=== PATIENT | female | born 1985 | race Caucasian/White ===

== ENCOUNTER 2019-07-29 03:10 | Inpatient (IN) ==
[2019-07-29 03:30] VITALS: BMI 26.4
[2019-07-29] MEDS ORDERED: D5 1/2 NS 1000 ML 1,000 ML IV ONE (03:40)
[2019-07-29] MEDS ORDERED: D5 1/2 NS 1000 ML 1,000 ML IV SCH (04:00)
[2019-07-29] MEDS ORDERED: D5LR 1L W PITOCIN 10 UNITS/L 10 UNITS/1,000 ML BAG IV ONE (04:59)
[2019-07-29] MEDS ORDERED: NUBAIN INJ 200 MG VIAL MULTIDOSE IVP PRN ×2 (05:08→08:00)
[2019-07-29] MEDS ORDERED: PHENERGAN INJ 25 MG IM PRN ×2 (05:08→20:20)
[2019-07-29] MEDS ORDERED: REGLAN INJ 10 MG VIAL IVP PRN (05:08)
[2019-07-29] MEDS ORDERED: MORPHINE SULFATE INJ 2 MG INJ IVP PRN (05:08)
[2019-07-29] MEDS ORDERED: D5LR 1L W PITOCIN 10 UNITS/L 10 UNITS/1,000 ML BAG IV PRN (05:08)
[2019-07-29] MEDS ORDERED: PITOCIN IVP ONE (05:08)
[2019-07-29] MEDS ORDERED: D5 1/2 NS 1L W PITOCIN 20 UNITS/L 20 UNITS/1,000 ML BAG IV ONE ×3 (06:13→22:26)
[2019-07-29] MEDS ORDERED: PITOCIN ONE (06:13)
[2019-07-29] MEDS ORDERED: LR 1000 ML IV 1,000 ML IV ONE ×2 (07:32→16:48)
[2019-07-29] MEDS ORDERED: FENTANYL INJ 100 mcg ONE (07:33)
[2019-07-29] MEDS ORDERED: NAROPIN EPIDURAL 0.2% + FENTANYL 90MCG 60 ML EPI ONE ×2 (07:33→15:33)
[2019-07-29] MEDS ORDERED: XYLOCAINE 2 % (PLAIN) ONE (17:42)
[2019-07-29] MEDS ORDERED: HEMABATE IM ONE ×3 (18:13→23:01)
[2019-07-29] MEDS ORDERED: CYTOTEC ONE (18:28)
[2019-07-29] MEDS ORDERED: AMBIEN PO PRN (19:49)
[2019-07-29] MEDS ORDERED: DERMOPLAST SPRAY TOP PRN (19:49)
[2019-07-29] MEDS ORDERED: MOTRIN TAB 800 MG PO PRN (19:49)
[2019-07-29] MEDS ORDERED: MILK OF MAGNESIA PO PRN (19:49)
[2019-07-29] MEDS: D5 1/2 NS 1000 ML 1,000 ML with PITOCIN 20 UNITS IV SCH ×2 (19:57)
[2019-07-29] MEDS ORDERED: ZOFRAN INJ 4 MG VIAL IVP PRN (20:20)
[2019-07-29] MEDS: TORADOL 30 MG VIAL IVP SCH (20:35)
[2019-07-29] MEDS ORDERED: METHERGINE IM ONE (22:09)
[2019-07-29] MEDS ORDERED: NS 1000 ML 1,000 ML ONE (22:13)
[2019-07-29] MEDS ORDERED: METHERGINE ONE (22:14)
[2019-07-29 22:29] LABS: HEMOGLOBIN 6.4 g/dL (12.0-16.0)
[2019-07-29 22:30] LABS: HEMATOCRIT 19.4 % (36.0-47.0)
[2019-07-29] MEDS ORDERED: NS 1000 ML 1,000 ML IV ONE (22:32)
[2019-07-29] MEDS ORDERED: NS 100 ML IV 100 ML IV ONE (22:46)
[2019-07-29] MEDS ORDERED: MEFOXIN IV ONE (22:47)
[2019-07-29] MEDS ORDERED: NS 500 ML IV 500 ML IV ONE (22:57)
[2019-07-29] MEDS: SPIKE MINIBAG IV SCH (22:58)
[2019-07-29] MEDS: MEFOXIN IV SCH (22:58)
[2019-07-29] MEDS: NS IV SCH (22:58)
[2019-07-29] MEDS ORDERED: MEFOXIN 1 G in NS 100 ML IV + SPIKE MINIBAG* 100 ML IV SCH (23:00)
[2019-07-29] MEDS ORDERED: METHERGINE IM PRN (23:29)
[2019-07-30] MEDS: COLACE CAP 100 MG PO SCH ×2 (01:17→21:45)
[2019-07-30] MEDS: MIRALAX POWDER (1 DOSE 17 G) PO SCH ×2 (01:17→21:46)
[2019-07-30] MEDS: D5 1/2 NS 1000 ML 1,000 ML with PITOCIN 20 UNITS IV SCH ×4 (01:19→13:22)
[2019-07-30] MEDS ORDERED: NS 500 ML IV 500 ML IV ONE (03:28)
[2019-07-30] MEDS ORDERED: NS 100 ML IV 100 ML IV ONE ×2 (03:29→19:29)
[2019-07-30] MEDS: TORADOL 30 MG VIAL IVP SCH ×3 (04:21→13:49)
[2019-07-30] MEDS: NORCO 5/325 MG TAB PO PRN ×2 (04:32→21:46)
[2019-07-30] MEDS: NS 500 ML IV 500 ML IV PRN (05:13)
[2019-07-30] MEDS: NS IV SCH ×3 (05:14→21:46)
[2019-07-30] MEDS: MEFOXIN IV SCH ×3 (05:14→21:46)
[2019-07-30] MEDS: SPIKE MINIBAG IV SCH ×3 (05:14→21:46)
[2019-07-30 06:46] LABS: HEMATOCRIT 23.5 % (36.0-47.0); HEMOGLOBIN 8.1 g/dL (12.0-16.0)
[2019-07-30] MEDS: PRENATAL PLUS PO SCH (09:28)
[2019-07-30] MEDS ORDERED: D5 1/2 NS 1000 ML 1,000 ML IV ONE (09:50)
[2019-07-30 12:37] LABS: HEMATOCRIT 21.3 % (36.0-47.0); HEMOGLOBIN 7.5 g/dL (12.0-16.0)
[2019-07-30] MEDS: D5 1/2 NS 1000 ML 1,000 ML IV SCH ×2 (13:50→17:33)
[2019-07-30] MEDS: BETADINE SOLN TOP SCH ×2 (13:50→21:47)
[2019-07-31] MEDS: NORCO 5/325 MG TAB PO PRN ×2 (01:29→22:17)
[2019-07-31] MEDS: D5 1/2 NS 1000 ML 1,000 ML IV SCH ×3 (02:36→20:23)
[2019-07-31] MEDS ORDERED: NS 100 ML IV 100 ML IV ONE (04:06)
[2019-07-31] MEDS: BETADINE SOLN TOP SCH ×3 (05:21→22:16)
[2019-07-31] MEDS: SPIKE MINIBAG IV SCH ×3 (05:22→22:16)
[2019-07-31] MEDS: MEFOXIN IV SCH ×3 (05:22→22:16)
[2019-07-31] MEDS: NS IV SCH ×3 (05:22→22:16)
[2019-07-31 05:54] LABS: HEMATOCRIT 18.6 % (36.0-47.0); HEMOGLOBIN 6.5 g/dL (12.0-16.0)
[2019-07-31] MEDS: NS 500 ML IV 500 ML IV PRN (06:22)
[2019-07-31] MEDS: PRENATAL PLUS PO SCH (09:42)
[2019-07-31] MEDS: METHERGINE PO SCH ×3 (13:56→22:16)
[2019-07-31 20:55] LABS: HEMATOCRIT 28.2 % (36.0-47.0)
[2019-07-31 20:57] LABS: HEMOGLOBIN 9.7 g/dL (12.0-16.0)
[2019-07-31] MEDS: MIRALAX POWDER (1 DOSE 17 G) PO SCH (22:16)
[2019-07-31] MEDS: COLACE CAP 100 MG PO SCH (22:16)
[2019-08-01] MEDS: D5 1/2 NS 1000 ML 1,000 ML IV SCH ×3 (01:08→14:26)
[2019-08-01] MEDS: BETADINE SOLN TOP SCH ×2 (05:09→14:25)
[2019-08-01] MEDS: MEFOXIN IV SCH ×2 (05:09→14:26)
[2019-08-01] MEDS: NS IV SCH ×2 (05:09→14:26)
[2019-08-01] MEDS: SPIKE MINIBAG IV SCH ×2 (05:09→14:26)
[2019-08-01] MEDS: PRENATAL PLUS PO SCH (08:56)
[2019-08-01] MEDS: METHERGINE PO SCH ×2 (08:56→14:24)
[2019-08-01 14:22] VITALS: BP 158/84
--- NOTE | 2019-08-04 12:24 | DR.OB ---
OB QUICK NOTE Assessment/Plan Assessment/Plan: S: She is without any c/o this morning but her Hgb is back down. She has been moving well and has no symptoms of Hypovolemia. O: Hgb 6.5mg/dl BP 108/57 P70 UT- u-2cm and firm/ nontender (improved) A: slow return on pt with hemorrhage P: plan txf 2u pRBC's and observer. Endometritis appears resolved. Possibly go home tomorrow.
--- NOTE | 2019-08-04 12:24 | DR.OB ---
OB QUICK NOTE Assessment/Plan Assessment/Plan: S: call about pt due to increased bleeding. The reort is that her uterus became less firm and that her bleeding had picked up with dropping blood pressure and rising pulse. O: BP 85/50 P 106 R 20 T 99 Ut now firm after methergine 0.2mg IM and minimal bleeding when I examined the pt. her uterus is also tender A: hemorrhage with early endometritis infection P: the pt had minimal bleeding during her 4degree repain which was done before her placenta was delivered. This is a great indicator that her uterus is the likely source and not the cervix (which appeared to be intact at the review during the delivery). The tender uterus and boggy uterus could be early indications of an uterine infection. I will now start a second generation cephalosporin to cover this. Her Hgb has returned and is 6.4g/dl Hct 19.4% down from 10.0 & 29.6%. I will T&C&Tranfuse 2U pRBC's and give a fluid bolus. Also, educated nursing staff on using Carboprost 0.25mg IM again q15min for soft uterus for a max dose of 2mg(total). She can have the methergine 0.2mg [id number] for bleeding.
--- NOTE | 2019-08-04 12:24 | DR.OB ---
OB QUICK NOTE Assessment/Plan Assessment/Plan: S: the pt is awake and doing much better this morning O: BP 123/89 T99.5 Abd-far less tender than last night; ut- firm; perineum-intact A: s/p vac. delivery with hemorrhage from uterine atony probably due to early endometritis P: now doing well.
--- NOTE | 2019-08-04 12:24 | DR.OB ---
OB QUICK NOTE Assessment/Plan Assessment/Plan: S: The pt is doing better this morning and just starting to move around O:Hgb 8.1 this AM and uterus is firm A: s/p vac delivery with 4th degree and hemorrhage with endometritis. P: continue current plan. She seems to be doing well
--- NOTE | 2019-08-04 12:24 | DR.OB ---
OB QUICK NOTE Assessment/Plan Assessment/Plan: s: The pt has been resting well with her epidural, o: ctx 1.5-3.5 minutes, [id number], cx 8cm/100%/+1 a: labor and has been 8 cm for 2 hours p: continue to observe with position changes
== END 2019-08-01 15:35 | disposition home or self-care (01) | DRG 768 ==
LOC: ER 03:15 → LD 04:43 → MED/SURG 19:17
PROVIDERS: ADMIT Obstetrics & Gynecology; ATTEND Obstetrics & Gynecology
DX: O70.3 Fourth degree perineal laceration during delivery; O24.410 Gestational diabetes mellitus in pregnancy, diet controlled; O67.8 Other intrapartum hemorrhage; Z37.0 Single live birth; Z3A.40 40 weeks gestation of pregnancy
CPT/HCPCS: 36415; 59409; 85014; 85018; 86850; 86900; 86901; 86922; 96365; 99284; A4216; A4222; J0694; J1885; J2210; J2405; J2590; J3010; J7030; J7040; J7050; J7120; P9016; S0191; S0197; S5010